=== PATIENT | male | born 1985 | race American Indian/Alaskan Native ===

== ENCOUNTER 2017-05-07 22:07 | Emergency (ER) | payer OTHER ==
[2017-05-07 22:53] VITALS: BP 122/77
--- NOTE | 2017-05-07 23:44 | XRay Report ---
FINAL REPORT EXAM: XR SHOULDER 2+V RT HISTORY: pain TECHNIQUE: Right shoulder three views PRIORS: None. FINDINGS: There is acute transverse fracture through the mid clavicle with displacement. There is approximately 5 millimeters depression of the distal fragment. No evidence for shoulder dislocation. Proximal humerus is intact. Adjacent bony and soft tissue structures appear unremarkable. IMPRESSION: Acute midclavicular fracture
--- NOTE | 2017-05-07 23:44 | XRay Report ---
FINAL REPORT EXAM: XR CLAVICLE RT HISTORY: PAIN IN RT CLAVICLE TECHNIQUE: Right clavicle two views PRIORS: None. FINDINGS: There is acute transverse fracture through the mid clavicle. There is inferior displacement the distal fragment with distraction present. Adjacent bony and soft tissue structures demonstrate no acute abnormality. IMPRESSION: Acute displaced fracture through the mid clavicle
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
== END 2017-05-08 02:06 | disposition home or self-care (01) ==
LOC: ED 22:07
DX: S42.021A Displaced fracture of shaft of right clavicle, initial encounter for closed fracture (principal); F17.200 Nicotine dependence, unspecified, uncomplicated; J45.909 Unspecified asthma, uncomplicated; V49.49XA Driver injured in collision with other motor vehicles in traffic accident, initial encounter; Y93.89 Activity, other specified; Y92.89 Other specified places as the place of occurrence of the external cause; Y99.8 Other external cause status